=== PATIENT | female | born 1970 | race Two or more races ===

== ENCOUNTER 2025-03-11 15:14 | Inpatient (IN) | payer BC, OTHER ==
[~2025-03-11] VITALS: Ht 172.7 cm; Wt 72.7 kg
--- NOTE | 2025-03-11 16:25 | ECG ---
[facility] Test Date: 2025-03-11 Test Time: 16:24:19 Pat Name: JERRY HAMMOND Department: COUNTS INCLUDE 234 BEDS AT THE [facility] ED Patient ID: COUNTS INCLUDE [id number] BEDS AT THE [facility]-[id number] Room: 0220T Gender: F Scratcher Tender: [place] : 1970 Requested By: KEYANA HEARN Order Number: [id number] Reading MD: Todd Villanueva Measurements Intervals [place] Rate: 91 P: 80 WI: 127 QRS: 89 QRSD: 89 T: 73 QT: 386 QTc: 475 Interpretive Statements Sinus rhythm Low voltage, precordial leads RSR' in V1 or V2, right VCD or RVH Electronically Signed On 03-13-2025 15:03:05 PST by Todd Villanueva Please click the below link to view image of tracing.
--- NOTE | 2025-03-11 16:33 | DVH ---
CHEST RADIOGRAPH Indication: sob Technique: Single frontal view of the chest was obtained Comparison: None FINDINGS: Lines and Tubes: None Lungs: No focal consolidation. Pleura: No effusion. No pneumothorax. Cardiomediastinal contours: Unremarkable Bones: No acute osseous abnormality. IMPRESSION: No acute cardiopulmonary disease.
[2025-03-11 16:40] LABS: Chloride 106 mmol/L (98-107); Potassium 3.9 mmol/L (3.5-5.1); Sodium 145 mmol/L (136-145)
--- NOTE | 2025-03-11 16:40 | ED.PDOC ---
HPI Comments 55 year-old female presents to the ED with a chief complaint of intermittent substernal CP as of X2 days ago after eating. Patient described chest pain as "squeeze" like. Patient has no further complaints at this time. Patient denies symptoms of dizziness, weakness, palpitations, cough, or SOB. 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[employer] History Family History Family History: Unknown Social History Smoker: Non-Smoker Alcohol: Denies ETOH Use Drugs: Denies Drug Use Lives In: Home Constitutional: denies: chills, diaphoresis, fatigue, fever, malaise, sweats, weakness, others EENTM: denies: blurred vision, double vision, ear bleeding, ear discharge, ear drainage, ear pain, ear ringing, eye pain, eye redness, hearing loss, mouth pain, mouth swelling, nasal discharge, nose bleeding, nose congestion, nose pain, photophobia, tearing, throat pain, throat swelling, voice changes, others Respiratory: denies: cough, hemoptysis, orthopnea, SOB at rest, shortness of breath, SOB with excertion, stridor, wheezing, others Cardiovascular: reports: chest pain; denies: dizzy spells, diaphoresis, Dyspnea on exertion, edema, irregular heart beat, left arm pain, lightheadedness, palpitations, PND, syncope, others Gastrointestinal: denies: abdomen distended, abdominal pain, blood streaked bowels, constipated, diarrhea, dysphagia, difficulty swallowing, hematemesis, melena, nausea, poor appetite, poor fluid intake, rectal bleeding, rectal pain, vomiting, others Genitourinary: denies: abnormal vagina bleeding, burning, dyspareunia, dysuria, flank pain, frequency, hematuria, incontinence, pain, , vagina discharge, urgency, others Neurological: denies: dizziness, fainting, headache, left sided numbness, left sided weakness, numbness, paresthesia, pre-existing deficit, right sided numbness, right sided weakness, seizure, speech problems, tingling, tremors, weakness, others Musculoskeletal: denies: back pain, gout, joint pain, joint swelling, muscle pain, muscle stiffness, neck pain, others Integumetry: denies: bruises, change in color, change in hair/nails, dryness, laceration, lesions, lumps, rash, wounds, others Allergic/Immunocompromised: denies: Difficulty Healing, Frequent Infections, Hives, Itching, others Hematologic/Lymphatic: denies: anemia, blood clots, easy bleeding, easy bruising, swollen glands, others Endocrine: denies: excessive hunger, excessive sweating, excessive thirst, excessive urination, flushing, intolerance to cold, intolerance to heat, un explained weight gain, unexplained weight loss, others Psychiatric: denies: anxiety, bipolar disorder, depression, hopeless, panic disorder, schizophrenia, sleepless, suicidal, others All Other Systems: Reviewed and Negative Physical Exam General Appearance: Moderate Distress HEENT: Normal ENT Inspection, Pharynx Normal, TMs Normal Neck: Full Range of Motion, Non-Tender, Normal, Normal Inspection Respiratory: Chest Non-Tender, Lungs Clear, No Accessory Muscle Use, No Respiratory Distress, Normal Breath Sounds Cardiovascular: No Edema, No JVD, No Murmur, No Gallop, Normal Peripheral Pulses, Regular Rate/Rhythm Breast Exam: Deferred Gastrointestinal: No Organomegaly, Non Tender, No Pulsatile Mass, Normal Bowel Sounds, Soft Genitalia: Deferred Pelvic: Deferred Rectal: Deferred Extremities: No calf tenderness, Normal capillary refill, Normal inspection, Normal range of motion, Non-tender, No pedal edema Musculoskeletal : Apperance: Normal Neurologic: Alert, precision machinist II-XII nml as Tested, No Motor Deficits, Normal Affect, Normal Mood, No Sensory Deficits Cerebellar Function: Normal Reflexes: Normal Skin: Dry, Normal Color, Warm Peripheral Pulses: 3+ Radial (R), 3+ Radial (L) Lymphatic: No Adenopathy EKG EKG : Pulse Rate (adult): 91 [place]: Normal Cardiac Rhythm: NSR Block: None Hypertrophy: None ST: Normal Was a procedure done? Was a procedure done?: No CP Differential Dx Differential Diagnosis: A-fib, A-Flutter, Angina, Anxiety / Panic Attack, Atrial Dysrhythmia, Electrolyte Disorder Differential Diagnosis: HTN Essential Differential Diagnosis: Angina, Chest Wall Pain, Gastritis, Pneumonia X-Ray, Labs, Meds, VS Vital Signs Date Time Temp Pulse Resp B/P (MAP) Pulse Ox O2 Delivery O2 Flow Rate FiO2 03/11/25 16:40 91 03/11/25 16:24 91 03/11/25 15:19 83 03/11/25 15:14 98.2 98 16 121/107 98 98.2 Lab Test 03/11/25 16:31 03/11/25 15:28 Range/Units Troponin I High Sensitivity 3 L < 3 L </=34 ng/L White Blood Count 6.4 4.4-10.8 10^3/uL Red Blood Count 4.67 4.0-5.20 10^6/uL Hemoglobin 14.8 12.2-16.2 g/dL Hematocrit 43.6 36.0-46.0 % Mean Corpuscular Volume 93.4 80.0-100.0 fL Mean Corpuscular Hemoglobin 31.6 28.0-32.0 pg Mean Corpuscular Hemoglobin Concent 33.9 32.0-36.0 g/dL Red Cell Distribution Width 14.1 11.8-14.3 % Platelet Count 216 140-450 10^3/uL Mean Platelet Volume 8.4 6.9-10.8 fL Neutrophils (%) (Auto) 59.3 37.0-80.0 % Lymphocytes (%) (Auto) 31.5 10.0-50.0 % Monocytes (%) (Auto) 7.3 0.0-12.0 % Eosinophils (%) (Auto) 1.4 0.0-7.0 % Basophils (%) (Auto) 0.5 0.0-2.0 % Neutrophils # (Auto) 3.8 1.6-8.6 10 ^3/uL Lymphocytes # (Auto) 2.0 0.4-5.4 10 ^3/uL Monocytes # (Auto) 0.5 0-1.3 10 ^3/uL Eosinophils # (Auto) 0.1 0-0.8 10 ^3/uL Basophils # (Auto) 0 0-0.2 10 ^3/uL Nucleated Red Blood Cells 0.2 % Sodium Level 145 136-145 mmol/L Potassium Level 3.9 3.5-5.1 mmol/L Chloride Level 106 98-107 mmol/L Carbon Dioxide Level 30 20-31 mmol/L Anion Gap 9 5-15 Blood Urea Nitrogen 14 9-23 mg/dL Creatinine 0.81 0.550-1.02 mg/dL Glomerular Filtration Rate Calc 87 >90 mL/min BUN/Creatinine Ratio 17.3 10.0-20.0 Serum Glucose 91 74-106 mg/dL Calcium Level 9.7 8.7-10.4 mg/dL [place] [address] Ph: [phone] DIAGNOSTIC IMAGING Diagnostic Imaging Report : [id number] Signed PATIENT: JERRY HAMMOND ACCT: [id number] UNIT: [id number] : 1970 LOC: ER ROOM / BED: / AGE / SEX: 55 / F ADM STATUS: REG ER SERVICE 1601 ORDERING PHYSICIAN: KEYANA HEARN MD PROCEDURE(s): CXRP - CHEST PORTABLE REASON: sob ORDER NUMBER(s): [id number], ACCESSION NUMBER(s): [id number] CHEST RADIOGRAPH Indication: sob Technique: Single frontal view of the chest was obtained Comparison: None FINDINGS: Lines and Tubes: None Lungs: No focal consolidation. Pleura: No effusion. No pneumothorax. Cardiomediastinal contours: Unremarkable Bones: No acute osseous abnormality. IMPRESSION: No acute cardiopulmonary disease. ATED BY: AIMEE FRANKEL DO DICTATED DATE/TIME: 03/11/25 163 SIGNED BY: AIMEE FRANKEL DO SIGNED DATE/TIME: 03/11/25 1631 CC: Patient alert. Complaining of chest pain. Has been having these symptoms for many days. Vitals stable. She will need a stress test. Echocardiogram. Cardiology consultation. EKG reviewed does not show any acute changes. Was given aspirin. Explained to the patient. Continue monitoring. Time of 1ST Reevaluation: 16:40 Reevaluation 1ST: Unchanged Patient Education/Counseling: Diagnosis, Treatment Family Education/Counseling: No Family Present SEPSIS Sepsis Screen Date sepsis recognized/suspect: Mar 11, 2025 Time Sepsis recognized/suspect: 1514 Recent Procedure: No On Antibiotic Therapy: No Respiratory Rate >20: No Heart Rate >90: No Temp<36 C (96.8 F) or >38.3 C: No SBP <90 or MAP <65 mmHG: No New Acute Mental Status Change: No Is the patient on CPAP, BIPAP,: No Physician Orders Electrocardigram (03/11/25 16:19) Electrocardigram (03/11/25 18:19) Chest Portable (03/11/25 16:01) Vital Signs Date Time Temp Pulse Resp B/P (MAP) Pulse Ox O2 Delivery O2 Flow Rate FiO2 03/11/25 16:40 91 03/11/25 16:24 91 03/11/25 15:19 83 03/11/25 15:14 98.2 98 16 121/107 98 98.2 Laboratory Tests Test 03/11/25 15:28 White Blood Count 6.4 10^3/uL (4.4-10.8) Departure 1 Departure Time of Disposition: 17:35 Impression: Primary Impression: Chest pain of unknown etiology Disposition: ADMITTED INPATIENT Admit to: Med Surg Condition: Guarded Critical Care Note Critical Care Time?: No Stability Stability form required: No Heart Score Heart Score: Heart Score Response (Comments) Value History Slightly Suspicious 0 EKG Normal 0 Age 45-64 1 Risk Factors No known risk factors 0 Troponin Normal limit 0 Total 1 I personally scribed for KEYANA HEARN MD ([email or web address]) on 03/11/25 at 16:40. Electronically submitted by Dolores Lamar ([employer]). I personally scribed for KEYANA HEARN MD ([email or web address]) on 03/11/25 at 17:04. Electronically submitted by Dolores Lamar ([employer]). I personally scribed for KEYANA HEARN MD ([email or web address]) on 03/11/25 at 17:05. Electronically submitted by Dolores Lamar ([employer]). I personally scribed for KEYANA HEARN MD ([email or web address]) on 03/11/25 at 17:07. Electronically submitted by Dolores Lamar ([employer]). KEYANA HEARN MD Mar 11, 2025 16:40
[2025-03-11 16:41] LABS: Anion Gap 9 (5-15); Calcium 9.7 mg/dL (8.7-10.4); Carbon Dioxide 30 mmol/L (20-31); Hematocrit 43.6 % (36.0-46.0); Hemoglobin 14.8 g/dL (12.2-16.2); Mean Corpuscular Hemoglobin 31.6 pg (28.0-32.0); Mean Corpuscular Volume 93.4 fL (80.0-100.0); Nucleated Red Blood Cells % 0.2 %
[2025-03-11 16:46] LABS: BUN/Creatinine Ratio 17.3 (10.0-20.0); Blood Urea Nitrogen 14 mg/dL (9-23); Glucose 91 mg/dL (74-106)
[2025-03-11 17:13] LABS: Urine Protein, UAD Negative (Negative)
[2025-03-11] MEDS ORDERED: DOCUSATE SOD 100 MG CAP PO PRN (20:00)
[2025-03-11] MEDS ORDERED: HYDROcodone-ACET 5/325MG TAB PO PRN (20:00)
[2025-03-11] MEDS ORDERED: MORPHINE SULFATE INJ 2 MG/ml SYRG IV PRN (20:15)
[2025-03-11] MEDS ORDERED: NITROGLYCERIN 0.4 MG SL TAB SL PRN (20:15)
--- NOTE | 2025-03-11 20:23 | DVHHP2 ---
History of Present Illness Reason for Visit: Chest pain of unknown etiology History of Present Illness The patient is a 55-year-old female who denies past medical history presented to [facility] ED with complaint of chest pain. Patient reports she has been experiencing intermittent substernal chest pain for the past 3 days, described as squeezing sensation, palpitation, waking her up from sleep, getting worse today that prompted this visit. Patient was seen and evaluated in the ED, laboratory data shows WBC 6.4, platelets 216, sodium 145, potassium 3.9, BUN 14, creatinine 0.81, GFR 87, glucose 91, calcium 9.7, troponin 3, blood pressure 146/96, heart rate 72, temperature 98.2 F, O2 saturation 97% on room air. Chest x-ray show no acute cardiopulmonary disease. Please see medication orders section in the computer. On my assessment, patient denied chest pain at this moment, no headache, dizziness, palpitation, diaphoresis, shortness of breaths, no diarrhea, nausea, vomiting, fever, no chills. Patient was admitted for further evaluation and medical management. Past Medical History Denies past medical history Past Surgical History Hysterectomy Family History Reviewed, noncontributory to the management of this case. Past Social History The patient lives at home, denies smoking, alcohol or illicit drugs abuse. Review of Systems Constitutional: Yes: Weakness; No: Fever, Chills, Sweats, Malaise, Other Eyes: No: Pain, Vision change, Conjunctivae inflammation, Eyelid inflammation, Other, Redness ENT: No: Ear pain, Ear discharge, Nose pain, Nose discharge, Nose congestion, Mouth pain, Mouth swelling, Throat pain, Throat swelling, Other Respiratory: No: Cough, Dry, Shortness of breath, SOB with excertion, Wheezing, Hemoptysis, Pleuritic Pain, Sputum, Wheezing, Other Cardiovascular: No: Chest Pain, Palpitations, Orthopnea, Paroxysmal Noc. Dyspnea, Edema, Lt Headedness, Other Gastrointestinal: No: Nausea, Vomiting, Abdominal Pain, Diarrhea, Constipation, Melena, Hematochezia, Other Genitourinary: No Dysuria, No Frequency, No Incontinence, No Hematuria, No Retention, No Other Musculoskeletal: No: other, neck pain, shoulder pain, arm pain, back pain, hand pain, leg pain, foot pain Skin: No: Rash, Lesions, Jaundice, Bruising, Other Neurological: No: Weakness, Numbness, Incoordination, Change in speech, Confusion, Seizures, Other Allergies: Coded Allergies: NO KNOWN ALLERGIES (Unverified , 03/11/25) Medications Current Medications Medications Dose Ordered Sig/Rosina Route Start Time Stop Time Status Last Admin Dose Admin Sodium Chloride 10 ml Q8HR IV 03/11/25 22:00 Acetaminophen/ Hydrocodone Bitart 1 tab Q4HP PRN PO 03/11/25 20:00 Ondansetron HCl 4 mg Q4HP PRN IV 03/11/25 20:00 Docusate Sodium 100 mg BIDPRN PRN PO 03/11/25 20:00 Acetaminophen 650 mg Q6HP PRN PO 03/11/25 20:00 Exam Vital Signs Vital Signs Date Time Temp Pulse Resp B/P (MAP) Pulse Ox O2 Delivery O2 Flow Rate FiO2 03/11/25 19:32 98.2 72 18 146/96 (113) 97 98.2 General Appearance: Alert, Oriented X3, Cooperative, No acute distress HEENT: Atraumatic, PERRLA, EOMI, Mucous membr. moist/pink Respiratory: Clear to auscultation, Normal air movement Cardiovascular: Regular rate, Normal S1, Normal S2, No murmurs Abdominal: Normal bowel sounds, Soft, No tenderness, No hepatospenomegaly, No masses Extremities: No clubbing, No cyanosis, No edema, Normal pulses, No tenderness/swelling Skin: No rashes, No breakdown, No significant lesion Neuro: Normal speech, Normal tone, Sensation intact, Cranial nerves 3-12 NL, Reflexes 2+, Other (Generalized weakness) Psych/Mental Status: Mental status NL, Mood NL Labs/Xrays Labs Test 03/11/25 17:40 03/11/25 16:31 03/11/25 15:28 Range/Units Urine Color Light-yellow Yellow Urine Clarity Clear Clear Urine pH 7.0 5.0-9.0 Urine Specific [place] 1.012 1.001-1.035 Urine Protein Negative Negative Urine Ketones Negative Negative Urine Blood Negative Negative /uL Urine Nitrite Negative Negative Urine Bilirubin Negative Negative Urine Urobilinogen Normal Negative mg/dL Urine Leukocyte Esterase Negative Negative /uL Urine RBC 1 0 - 4 /hpf Urine Microscopic WBC 1 0-5 /HPF Urine Squamous Epithelial Cells Few <5 /hpf Urine Bacteria None seen None Seen /hpf Urine Glucose Normal Normal mg/dL Troponin I High Sensitivity 3 L </=34 ng/L White Blood Count 6.4 4.4-10.8 10^3/uL Red Blood Count 4.67 4.0-5.20 10^6/uL Hemoglobin 14.8 12.2-16.2 g/dL Hematocrit 43.6 36.0-46.0 % Mean Corpuscular Volume 93.4 80.0-100.0 fL Mean Corpuscular Hemoglobin 31.6 28.0-32.0 pg Mean Corpuscular Hemoglobin Concent 33.9 32.0-36.0 g/dL Red Cell Distribution Width 14.1 11.8-14.3 % Platelet Count 216 140-450 10^3/uL Mean Platelet Volume 8.4 6.9-10.8 fL Neutrophils (%) (Auto) 59.3 37.0-80.0 % Lymphocytes (%) (Auto) 31.5 10.0-50.0 % Monocytes (%) (Auto) 7.3 0.0-12.0 % Eosinophils (%) (Auto) 1.4 0.0-7.0 % Basophils (%) (Auto) 0.5 0.0-2.0 % Neutrophils # (Auto) 3.8 1.6-8.6 10 ^3/uL Lymphocytes # (Auto) 2.0 0.4-5.4 10 ^3/uL Monocytes # (Auto) 0.5 0-1.3 10 ^3/uL Eosinophils # (Auto) 0.1 0-0.8 10 ^3/uL Basophils # (Auto) 0 0-0.2 10 ^3/uL Nucleated Red Blood Cells 0.2 % Sodium Level 145 136-145 mmol/L Potassium Level 3.9 3.5-5.1 mmol/L Chloride Level 106 98-107 mmol/L Carbon Dioxide Level 30 20-31 mmol/L Anion Gap 9 5-15 Blood Urea Nitrogen 14 9-23 mg/dL Creatinine 0.81 0.550-1.02 mg/dL Glomerular Filtration Rate Calc 87 >90 mL/min BUN/Creatinine Ratio 17.3 10.0-20.0 Serum Glucose 91 74-106 mg/dL Calcium Level 9.7 8.7-10.4 mg/dL PATIENT: JERRY HAMMOND ACCT: [id number] UNIT: [id number] : 1970 LOC: ER ROOM / BED: / AGE / SEX: 55 / F ADM STATUS: REG ER SERVICE 1601 ORDERING PHYSICIAN: KEYANA HEARN MD PROCEDURE(s): CXRP - CHEST PORTABLE REASON: sob ORDER NUMBER(s): [id number], ACCESSION NUMBER(s): [id number] CHEST RADIOGRAPH Indication: sob Technique: Single frontal view of the chest was obtained Comparison: None FINDINGS: Lines and Tubes: None Lungs: No focal consolidation. Pleura: No effusion. No pneumothorax. Cardiomediastinal contours: Unremarkable Bones: No acute osseous abnormality. IMPRESSION: No acute cardiopulmonary disease. SEPSIS Sepsis Screen Date sepsis recognized/suspect: Mar 11, 2025 Time Sepsis recognized/suspect: 1513 Recent Procedure: No On Antibiotic Therapy: No Respiratory Rate >20: No Heart Rate >90: No Temp<36 C (96.8 F) or >38.3 C: No SBP <90 or MAP <65 mmHG: No New Acute Mental Status Change: No Is the patient on CPAP, BIPAP,: No Physician Orders Electrocardigram (03/11/25 16:19) Electrocardigram (03/11/25 18:19) Chest Portable (03/11/25 16:01) Allergies (03/11/25 19:48) Code Status (03/11/25 19:48) Sodium Chloride Lock (Saline Lock Ns) (03/11/25 22:00) Oxygen Per Hour (03/11/25 19:48) Hydrocodone-Acet 5/325mg Tab ([place] 5/32 (03/11/25 20:00) Ondansetron Hcl (Zofran) (03/11/25 20:00) Docusate Sodium Capsule (Colace Capsule) (03/11/25 20:00) Complete Blood Count (03/12/25 04:00) Comprehensive Metabolic Panel (03/12/25 04:00) Cardiac Diet-2gna,Lofat,Lochol (03/12/25 Breakfast) Condition: Fair (03/11/25 19:48) Acetaminophen Tablet (Tylenol Tablet) (03/11/25 20:00) Bedrest With Bathroom Privileg (03/11/25 19:48) Sequential Compression Device (03/11/25 ) Vital Signs Date Time Temp Pulse Resp B/P (MAP) Pulse Ox O2 Delivery O2 Flow Rate FiO2 03/11/25 19:32 98.2 72 18 146/96 (113) 97 98.2 03/11/25 16:40 91 03/11/25 16:24 91 03/11/25 15:19 83 03/11/25 15:14 98.2 98 16 121/107 98 98.2 Laboratory Tests Test 03/11/25 15:28 White Blood Count 6.4 10^3/uL (4.4-10.8) Assessment/Plan Assessment/Plan Chest pain of unknown etiology Generalized weakness Plan 1. Admit to telemetry unit 2. Breathing treatment 3. Pain control management 4. Management of fluids and electrolytes 5. Consultation for Cardiology 6. Diagnostic tests chest x-ray 7. DVT prophylaxis-on SCDs 8. Repeat labs CBC, CMP in a.m. 9. Continue with current medical management 10. Treatment plan discussed with patient and RN. Patient verbalized understanding. Plan discussed with: Patient, Other (RN) My Orders Orders - CHYNA TRINIDAD DNP Procedure Category Date Status Time Allergies SILVIA 03/11/25 In Process 19:48 Code Status CODE 03/11/25 Transmitted 19:48 Sodium Chloride Lock PHA 03/11/25 In Process (Saline Lock Ns) 22:00 Oxygen Per Hour RT 03/11/25 Transmitted 19:48 Hydrocodone-Acet PHA 03/11/25 In Process 5/325mg Tab ([place] 20:00 Ondansetron Hcl PHA 03/11/25 In Process (Zofran) 20:00 Docusate Sodium PHA 03/11/25 In Process Capsule (Colace 20:00 Complete Blood Count LAB 03/12/25 Verified 04:00 Comprehensive LAB 03/12/25 Verified Metabolic Panel 04:00 Cardiac DIET 03/12/25 Transmitted Diet-2gna,Lofat,Lochol Breakfast Condition: Fair SILVIA 03/11/25 In Process 19:48 Acetaminophen Tablet PHA 03/11/25 In Process (Tylenol Tablet) 20:00 Bedrest With Bathroom SILVIA 03/11/25 In Process Privileg 19:48 Sequential SILVIA 03/11/25 In Process Compression Device Problem List: (1) Chest pain of unknown etiology (2) Generalized weakness Date of Service: Mar 11, 2025 Billing Provider: CHYNA TRINIDAD DNP Common Visit Codes: 48082-[id number] INP/OBS CARE (HIGH) CHYNA TRINIDAD DNP Mar 11, 2025 20:23
[2025-03-11 20:40] VITALS: RESP 16; O2SAT 95
[2025-03-11] MEDS: SODIUM CHLOR 0.9% PF (SALINE LOCK) 10ML VIAL/SYR IV SCH (22:00)
[2025-03-11 23:38] VITALS: BP 146/89; PULSE 68; RESP 18; TEMP 98.6; O2SAT 98
[2025-03-12] VITALS (19 sets, daily range): BP systolic 111–146; BP diastolic 67–90; PULSE 52–90; RESP 12–20; TEMP 97.6–98.6; O2SAT 90–98
[2025-03-12] MEDS ORDERED: ROSU10TA16 PO (01:34)
[2025-03-12] MEDS ORDERED: ESTR2TAB5 PO (01:34)
[2025-03-12] MEDS ORDERED: CHOL500021 OR (01:34)
[2025-03-12 06:35] LABS: Hematocrit 40.9 % (36.0-46.0); Hemoglobin 13.9 g/dL (12.2-16.2); Mean Corpuscular Hemoglobin 31.5 pg (28.0-32.0); Mean Corpuscular Volume 92.7 fL (80.0-100.0); Nucleated Red Blood Cells % 0.2 %
[2025-03-12 06:55] LABS: Alanine Aminotransferase 32 U/L (7-40); Albumin 4.1 g/dL (3.2-4.8); Alkaline Phosphatase 62 U/L (46-116); Anion Gap 8 (5-15); BUN/Creatinine Ratio 16.9 (10.0-20.0); Blood Urea Nitrogen 13 mg/dL (9-23); Calcium 9.3 mg/dL (8.7-10.4); Carbon Dioxide 29 mmol/L (20-31); Glucose 78 mg/dL (74-106); Potassium 4.1 mmol/L (3.5-5.1); Sodium 145 mmol/L (136-145); Total Protein 6.5 g/dL (5.7-8.2)
[2025-03-12 06:56] LABS: Bilirubin, Total 0.5 mg/dL (0.2-1.0)
[2025-03-12 07:09] LABS: Chloride 108 mmol/L (98-107)
--- NOTE | 2025-03-12 09:44 | DVHINCON2 ---
AMARIS RUSSELL [facility] 03/12/25 0943: Date Seen: Mar 12, 2025 Referring Physician ANGELINA Nava Reason for Consultation Chest pain History of Present Illness This is a 55-year-old female who presented to the emergency room with a chief complaint of chest pain since Wednesday night. Describes her chest pain as substernal, nonradiating, non provoked, squeezing in nature, intermittent, with onset of symptoms mostly during her sleep and a one time event on Wednesday while having lunch for which she attended a local urgent care clinic and was referred to the emergency room for further evaluation. Denies previous events of chest pain. Denies any other associated symptoms such as SOB, palpitations, dizziness, or syncopal events. Significant medical history includes dyslipidemia, current hormone replacement therapy with estradiol, history of TBI and treated at [facility] in 2004 history of ovarian cyst/anemia status post partial hysterectomy, current left ovarian cyst peach size, non-growing state of the penial gland at 8 mm, and vitamin-D deficiency. Past Medical History Past medical history reviewed. No other significant than mentioned above. Past Surgical History Hernia repair at 8 years old Breast implants Partial hysterectomy Family History Family history reviewed. Maternal grandmother with nonspecific Cardiovascular disease history. Social History Denies the use of illicit drugs or tobacco use. Admits to occasional alcohol use. Allergies: Coded Allergies: NO KNOWN ALLERGIES (Unverified , 03/11/25) Home Meds Reported Medications Cholecalciferol (VITAMIN D) 5,000 Unit Tab, 5000 UNIT OR 1X/week, TAB 03/12/25 Rosuvastatin Calcium (Crestor) 10 Mg Tab, 1 TAB PO DAILY, #30 TAB 5 Refills 03/12/25 Estradiol (Estradiol) 2 Mg Tab, 1 MG PO DAILY, TAB 03/12/25 Home Meds Home medications reviewed. Current Medications Current Medications Medications (Trade) Dose Ordered Sig/Rosina Route PRN Reason Start Time Stop Time Status Last Admin Sodium Chloride (Saline Lock Ns) 10 ml Q8HR IV 03/11/25 22:00 03/12/25 05:00 Acetaminophen/ Hydrocodone Bitart ([place] 5/325MG Tab) 1 tab Q4HP PRN PO MODERATE PAIN (4-6 PAIN SCALE) 03/11/25 20:00 Ondansetron HCl (Zofran) 4 mg Q4HP PRN IV NAUSEA / VOMITING 03/11/25 20:00 Docusate Sodium (Colace Capsule) 100 mg BIDPRN PRN PO FOR CONSTIPATION 03/11/25 20:00 Acetaminophen (Tylenol Tablet) 650 mg Q6HP PRN PO PAIN SCALE 1-3 OR TEMP>100.4 03/11/25 20:00 Nitroglycerin (Ntrostat Sublingual) 0.4 mg Q5MINP PRN SL FOR CHEST PAIN 03/11/25 20:15 Morphine Sulfate 2 mg Q30M PRN IV FOR CHEST PAIN 03/11/25 20:15 Review of Systems Constitutional: No symptom reported Ears, Nose, & Throat: No symptom reported Eyes: No symptom reported Neurological: No symptoms reported Pulmonary/Respiratory: No symptom reported Cardiovascular: Chest pain Gastrointestinal: No symptom reported Genitourinary: No symptom reported Musculoskeletal: No symptom reported Skin: No symptom reported Psychiatric: No symptom reported Endocrine: No symptom reported Hemotologic/Lymphatic: No symptom reported Vital Signs Vital Signs Date Time Temp Pulse Resp B/P (MAP) Pulse Ox O2 Delivery O2 Flow Rate FiO2 03/12/25 09:00 97.9 76 16 130/90 (103) 96 97.9 03/12/25 08:00 Room Air* 0 21 Physical Exam General Appearance: Cooperative. Well developed. Well nourished. In no acute distress Head Exam: Normal inspection Neck Exam: Normal inspection. Non-tender. Normal alignment Pulmonary/Respiratory: Chest non-tender. Clear bilateral breath sounds Cardiovascular/Chest: Regular rate and rhythm. S1, S2. NSR. No murmurs. No JVD. Peripheral Pulses: 2+ Radial (R). 2+ Radial (L). 2+ Pedal (R). 2+ Pedal (L) Abdominal Exam: Normal bowel sounds Ankle Exam: Negative ankle edema Lower extremities: Negative lower extremity edema Neuro/Mental Status: A&O x4. Coherent Thoughts/Psych: Normal thought pattern. Appropriate mood and affect. Good judgement and insight Appearance: In no acute distress Skin Exam: Normal inspection. Normal color. Warm. Dry Labs/Diagnostic Data Labs Test 03/12/25 06:05 03/11/25 17:40 03/11/25 16:31 Range/Units White Blood Count 6.0 4.4-10.8 10^3/uL Red Blood Count 4.41 4.0-5.20 10^6/uL Hemoglobin 13.9 12.2-16.2 g/dL Hematocrit 40.9 36.0-46.0 % Mean Corpuscular Volume 92.7 80.0-100.0 fL Mean Corpuscular Hemoglobin 31.5 28.0-32.0 pg Mean Corpuscular Hemoglobin Concent 34.0 32.0-36.0 g/dL Red Cell Distribution Width 14.1 11.8-14.3 % Platelet Count 201 140-450 10^3/uL Mean Platelet Volume 8.3 6.9-10.8 fL Neutrophils (%) (Auto) 53.4 37.0-80.0 % Lymphocytes (%) (Auto) 33.1 10.0-50.0 % Monocytes (%) (Auto) 11.4 0.0-12.0 % Eosinophils (%) (Auto) 1.6 0.0-7.0 % Basophils (%) (Auto) 0.5 0.0-2.0 % Neutrophils # (Auto) 3.2 1.6-8.6 10 ^3/uL Lymphocytes # (Auto) 2.0 0.4-5.4 10 ^3/uL Monocytes # (Auto) 0.7 0-1.3 10 ^3/uL Eosinophils # (Auto) 0.1 0-0.8 10 ^3/uL Basophils # (Auto) 0 0-0.2 10 ^3/uL Nucleated Red Blood Cells 0.2 % Sodium Level 145 136-145 mmol/L Potassium Level 4.1 3.5-5.1 mmol/L Chloride Level 108 H 98-107 mmol/L Carbon Dioxide Level 29 20-31 mmol/L Anion Gap 8 5-15 Blood Urea Nitrogen 13 9-23 mg/dL Creatinine 0.77 0.550-1.02 mg/dL Glomerular Filtration Rate Calc 92 >90 mL/min BUN/Creatinine Ratio 16.9 10.0-20.0 Serum Glucose 78 74-106 mg/dL Calcium Level 9.3 8.7-10.4 mg/dL Total Bilirubin 0.5 0.2-1.0 mg/dL Aspartate Amino Transferase (AST) 34 13-40 U/L Alanine Aminotransferase (ALT) 32 7-40 U/L Alkaline Phosphatase 62 46-116 U/L Total Protein 6.5 5.7-8.2 g/dL Albumin 4.1 3.2-4.8 g/dL Urine Color Light-yellow Yellow Urine Clarity Clear Clear Urine pH 7.0 5.0-9.0 Urine Specific [place] 1.012 1.001-1.035 Urine Protein Negative Negative Urine Ketones Negative Negative Urine Blood Negative Negative /uL Urine Nitrite Negative Negative Urine Bilirubin Negative Negative Urine Urobilinogen Normal Negative mg/dL Urine Leukocyte Esterase Negative Negative /uL Urine RBC 1 0 - 4 /hpf Urine Microscopic WBC 1 0-5 /HPF Urine Squamous Epithelial Cells Few <5 /hpf Urine Bacteria None seen None Seen /hpf Urine Glucose Normal Normal mg/dL Troponin I High Sensitivity 3 L </=34 ng/L Assessment Chest pain rule out coronary artery disease Rule out structural heart disease Hypertension, newly diagnosed Dyslipidemia HX of TBI Current HRT * Transthoracic echocardiogram, pending * Twelve lead electrocardiogram x2, NSR without specific ST-T wave segment changes * Serial troponin levels are negative Plan/Recommendation (Dr. Shabazz) Case discussed with Dr. Shabazz. The patient has been scheduled for a transthoracic echocardiogram to evaluate cardiac function and a coronary CT angiography to rule out coronary artery disease. In the meantime, initiate blood pressure control and reestablish statin therapy. Monitor ECG changes closely and notify accordingly. Continue chest pain protocol. Further orders per clinical course. Thank you for allowing us to participate in this patient's care. Please call if you have any questions or concerns. This medical document was created using an electronic medical record system with voice recognition software and computerized dictation system. Although this document has been carefully reviewed, there might still be some phonetic and typographical errors. Occasional wrong-word or ``sound-alike substitutions may have occurred due to the inherent limitations of voice recognition software. These areas are purely typographical due to imperfections of the software programs and do not reflect any compromise in the patient's medical care. Please read the chart carefully and recognize, using context, where these substitutions have occurred. Plan discussed with: Patient, Other NYHA Physical activity limitations: NA Date of Service: Mar 12, 2025 Billing Provider: AMARIS RUSSELL PHILOSOPHY PROFESSOR Cardiology Common Codes: [id number] INP/OBS CARE (High) CORBY SHABAZZ MD 03/12/25 1650: Allergies: Coded Allergies: NO KNOWN ALLERGIES (Unverified , 03/11/25) Home Meds Reported Medications Cholecalciferol (VITAMIN D) 5,000 Unit Tab, 5000 UNIT OR 1X/week, TAB 03/12/25 Rosuvastatin Calcium (Crestor) 10 Mg Tab, 1 TAB PO DAILY, #30 TAB 5 Refills 03/12/25 Estradiol (Estradiol) 2 Mg Tab, 1 MG PO DAILY, TAB 03/12/25 Plan/Recommendation agree with LEATHER TANNER assessment and plan acs ruled out ccta is pending, if negative, cv cleared for dc home pt seen with cv team Plan discussed with: Patient RUSSELLAMARIS KWAN PHILOSOPHY PROFESSOR Mar 12, 2025 09:43 CORBY SHABAZZ MD Mar 12, 2025 16:50
[2025-03-12] MEDS ORDERED: CHLORTHALIDONE 25 MG TAB PO ONE (10:15)
[2025-03-12] MEDS: METOPROLOL TARTRATE 50 MG TAB PO ONE (11:06)
[2025-03-12] MEDS: IOHEXOL 350 MG/ML 100ML IJ ONE (11:07)
[2025-03-12 11:26] LABS: Triglycerides 36 mg/dL (< 150)
[2025-03-12 11:28] LABS: Cholesterol 109 mg/dL (< 200); HDL Cholesterol 52 mg/dL (40-59)
[2025-03-12] MEDS: NITROGLYCERIN 0.4 MG SL TAB SL ONE (12:39)
--- NOTE | 2025-03-12 13:51 | DVHPN2 ---
Reviewed: H&P Changes from previous H/P or p: No Changes General: Per HPI Eyes: No Pain, No Vision change, No Conjunctivae inflammation, No Eyelid inflammation, No Other, No Redness ENT: No Ear pain, No Ear discharge, No Nose pain, No Nose discharge, No Nose congestion, No Mouth pain, No Mouth swelling, No Throat pain, No Throat swelling, No Other Cardiovascular: No Chest Pain, No Palpitations, No Orthopnea, No Paroxysmal Noc. Dyspnea, No Edema, No Lt Headedness, No Other Respiratory: No Cough, No Dry, No Shortness of breath, No SOB with excertion, No Wheezing, No Hemoptysis, No Pleuritic Pain, No Sputum, No Other Gastrointestinal: No Nausea, No Vomiting, No Abdominal Pain, No Diarrhea, No Constipation, No Melena, No Hematochezia, No Other Genitourinary: No Dysuria, No Frequency, No Incontinence, No Hematuria, No Retention, No Other Musculoskeletal: No other, No neck pain, No shoulder pain, No arm pain, No back pain, No hand pain, No leg pain, No foot pain Skin: No Rash, No Lesions, No Jaundice, No Bruising, No Other Objective Vitals Vital Signs Date Time Temp Pulse Resp B/P (MAP) Pulse Ox O2 Delivery O2 Flow Rate FiO2 03/12/25 12:44 66 14 138/78 (98) 92 03/12/25 09:00 97.9 97.9 03/12/25 08:00 Room Air* 0 21 Intake/Output Intake and Output 03/12/25 07:00 Intake Total 250 ml Output Total 0 ml Balance 250 ml Intake Oral 250 ml Output Urine Total 0 ml Exam General Appearance: Alert, Oriented X3, Cooperative, No acute distress HEENT: Atraumatic, PERRLA, EOMI, Mucous membr. moist/pink Respiratory: Clear to auscultation, Normal air movement Cardiovascular: Regular rate, Normal S1, Normal S2, No murmurs Abdominal: Normal bowel sounds, Soft, No tenderness, No hepatospenomegaly, No masses Extremities: No clubbing, No cyanosis, No edema, Normal pulses, No tenderness/swelling Skin: No rashes, No breakdown, No significant lesion Neuro: Normal speech, Normal tone, Sensation intact, Cranial nerves 3-12 NL, Reflexes 2+, Other (Generalized weakness) Psych/Mental Status: Mental status NL, Mood NL Medications Current Medications Medications Dose Ordered Sig/Rosina Route Start Time Stop Time Status Last Admin Dose Admin Sodium Chloride 10 ml Q8HR IV 03/11/25 22:00 03/12/25 05:00 10 ML Acetaminophen/ Hydrocodone Bitart 1 tab Q4HP PRN PO 03/11/25 20:00 Ondansetron HCl 4 mg Q4HP PRN IV 03/11/25 20:00 Docusate Sodium 100 mg BIDPRN PRN PO 03/11/25 20:00 Acetaminophen 650 mg Q6HP PRN PO 03/11/25 20:00 Nitroglycerin 0.4 mg Q5MINP PRN SL 03/11/25 20:15 Morphine Sulfate 2 mg Q30M PRN IV 03/11/25 20:15 Chlorthalidone 12.5 mg DAILY@BREAKFAST PO 03/13/25 08:00 Atorvastatin Calcium 20 mg HS PO 03/12/25 22:00 Laboratory Results Laboratory Tests 03/12/25 06:05 Chemistry Test 03/11/25 15:28 03/12/25 06:05 Calcium Level 9.7 mg/dL (8.7-10.4) 9.3 mg/dL (8.7-10.4) Albumin 4.1 g/dL (3.2-4.8) Total Protein 6.5 g/dL (5.7-8.2) Lipid panel Test 03/12/25 06:05 Cholesterol Level 109 mg/dL (< 200) HDL Cholesterol 52 mg/dL (40-59) Triglycerides Level 36 mg/dL (< 150) LFT Test 03/12/25 06:05 Alanine Aminotransferase (ALT) 32 U/L (7-40) Alkaline Phosphatase 62 U/L (46-116) Aspartate Amino Transferase (AST) 34 U/L (13-40) Total Bilirubin 0.5 mg/dL (0.2-1.0) HgA1c, TSH Test 03/12/25 06:05 Hemoglobin A1c 5.1 % A1C (<5.7) Thyroid Stimulating Hormone (TSH) 1.39 uIU/mL (0.55-4.78) Urinalysis Test 03/11/25 17:40 Urine Color Light-yellow (Yellow) Urine Clarity Clear (Clear) Urine pH 7.0 (5.0-9.0) Urine Specific [place] 1.012 (1.001-1.035) Urine Protein Negative (Negative) Urine Ketones Negative (Negative) Urine Blood Negative /uL (Negative) Urine Nitrite Negative (Negative) Urine Bilirubin Negative (Negative) Urine Urobilinogen Normal mg/dL (Negative) Urine Leukocyte Esterase Negative /uL (Negative) Urine RBC 1 /hpf (0 - 4) Urine Microscopic WBC 1 /HPF (0-5) Urine Squamous Epithelial Cells Few /hpf (<5) Urine Bacteria None seen /hpf (None Seen) Urine Glucose Normal mg/dL (Normal) Labs and/or images reviewed: Labs reviewed by me, Image(s) reviewed by me Assessment/Plan Assessment/Plan 55-year-old female who denies past medical history presented to [facility] ED with complaint of chest pain. chest pain since Wednesday night. Describes her chest pain as substernal, nonradiating, non provoked, squeezing in nature, intermittent, with onset of symptoms mostly during her sleep and a one time event on Wednesday while having lunch for which she attended a local urgent care clinic and was referred to the emergency room for further evaluation. Patient reports she has been experiencing intermittent substernal chest pain for the past 3 days, described as squeezing sensation, palpitation, waking her up from sleep, getting worse today that prompted this visit. -PMHx: dyslipidemia, current hormone replacement therapy with estradiol, history of TBI and treated at [facility] in 2004 history of ovarian cyst/anemia status post partial hysterectomy, current left ovarian cyst peach size, non-growing state of the penial gland at 8 mm, and vitamin-D deficiency. 03/12 - patient taken to [facility] today with cardiology. Trop neg, , no concerning PMHx. echo pending. diagnosis: CP, unstable angina possible, ACS HLD hormone therapyfor ovarian cyst post partial hysterectomy plan: ACS protocol cardiology consulted protonix iv daily full dose heparin gtt tele full code Plan discussed with: Patient Date of Service: Mar 12, 2025 Billing Provider: TOYIN HAMMOND MD Common Visit Codes: [id number] INP/OBS CARE(HIGH) TOYIN HAMMOND MD Mar 12, 2025 13:51
--- NOTE | 2025-03-12 17:14 | DVHSR ---
APPROVED REPORT EXAM: Two-dimensional and M-mode echocardiogram with Doppler and color Doppler. Blood Pressure: 136/81 mmHg INDICATION Chest Pain RISK FACTORS Height: 5'8", Weight: 160 DIMENSIONS LVDd 4.1 (3.8-5.7cm) LA (2D) 3.6 (1.9-4.0cm) Aortic Root 3.7 (2.0-3.7cm) LVDs 2.9 (2.5-4.0cm) LA (MM) (1.9-4.0cm) Aortic Cusp Exc 1.7 (1.5-2.0cm) EF (%) 60.0 (55-70%) Rt. Atrium 3.2 (1.9-4.0cm) Asc. Aorta cm IVSd 0.8 (0.7-1.1cm) RV (D) 3.1 (1.8-2.4cm) PWd 1.0 (0.7-1.1cm) Mitral Valve Mitral Mitral Stenosis E wave 0.64m/s MV Mean GR. mmHg A wave 0.62m/s MV Peak GR. mmHg E/A ratio 1.0 2D MVA cm2 DECEL Time 244ms PRESS 1/2 Time ms Aortic Valve Aortic Valve Aortic Stenosis V1 0.81m/s AO Mean GR. 3mmHg V2 1.12m/s AO Peak GR. 5mmHg LVOT Diameter 2.0 (1.8-2.4cm) Doppler ERWIN 2.27cm2 Pulmonic Valve V2 0.67m/s Tricuspid Valve TR Velocity 2.29m/s RVSP 24mmHg Conclusion lvef 65% normal rv function normal atria no severe valve abnormalities noted
[2025-03-12] MEDS: ONDANSETRON HCL 4 MG/2 ML VIAL IV PRN (17:51)
[2025-03-12] MEDS: ACETAMINOPHEN 325 MG TAB PO PRN (17:52)
[2025-03-12] MEDS: ATORVASTATIN 20 MG TAB PO SCH (22:03)
[2025-03-13 01:00] VITALS: BP 120/73; PULSE 60; RESP 19; TEMP 97.3; O2SAT 96
[2025-03-13 05:00] VITALS: BP 107/55; PULSE 70; RESP 19; TEMP 98.1; O2SAT 95
[2025-03-13 06:33] LABS: Hematocrit 42.6 % (36.0-46.0); Hemoglobin 14.4 g/dL (12.2-16.2); Mean Corpuscular Hemoglobin 31.4 pg (28.0-32.0); Mean Corpuscular Volume 92.8 fL (80.0-100.0); Nucleated Red Blood Cells % 0.0 %
[2025-03-13 07:11] LABS: Alanine Aminotransferase 28 U/L (7-40); Alkaline Phosphatase 63 U/L (46-116); Anion Gap 11 (5-15); BUN/Creatinine Ratio 13.9 (10.0-20.0); Blood Urea Nitrogen 11 mg/dL (9-23); Calcium 9.4 mg/dL (8.7-10.4); Carbon Dioxide 29 mmol/L (20-31); Chloride 103 mmol/L (98-107); Glucose 92 mg/dL (74-106); Potassium 4.0 mmol/L (3.5-5.1); Sodium 143 mmol/L (136-145); Total Protein 6.9 g/dL (5.7-8.2)
[2025-03-13 07:13] LABS: Albumin 4.3 g/dL (3.2-4.8); Bilirubin, Total 0.5 mg/dL (0.2-1.0)
--- NOTE | 2025-03-13 07:40 | ECG ---
[facility] Test Date: 2025-03-11 Test Time: 15:19:06 Pat Name: JERRY HAMMOND Department: [facility] ED Patient ID: [id number] Room: 0220T B Gender: F [employer] Front [employer] Developer: alfred : 1970 Requested By: KEYANA HEARN Order Number: [id number] Reading MD: Todd Villanueva Measurements Intervals [place] Rate: 83 P: 81 [place]: 131 QRS: 92 QRSD: 103 T: 69 QT: 402 QTc: 473 Interpretive Statements Sinus rhythm Borderline right axis deviation Electronically Signed On 03-13-2025 15:02:54 PST by Todd Villanueva Please click the below link to view image of tracing.
[2025-03-13 08:00] VITALS: PULSE 65
[2025-03-13] MEDS: CHLORTHALIDONE 25 MG TAB PO SCH (08:00)
[2025-03-13 09:00] VITALS: BP 104/75; PULSE 62; RESP 17; TEMP 97.7; O2SAT 99
--- NOTE | 2025-03-13 10:38 | DVHPN2 ---
Reviewed: H&P Changes from previous H/P or p: No Changes General: Per HPI Eyes: No Pain, No Vision change, No Conjunctivae inflammation, No Eyelid inflammation, No Other, No Redness ENT: No Ear pain, No Ear discharge, No Nose pain, No Nose discharge, No Nose congestion, No Mouth pain, No Mouth swelling, No Throat pain, No Throat swelling, No Other Cardiovascular: No Chest Pain, No Palpitations, No Orthopnea, No Paroxysmal Noc. Dyspnea, No Edema, No Lt Headedness, No Other Respiratory: No Cough, No Dry, No Shortness of breath, No SOB with excertion, No Wheezing, No Hemoptysis, No Pleuritic Pain, No Sputum, No Other Gastrointestinal: No Nausea, No Vomiting, No Abdominal Pain, No Diarrhea, No Constipation, No Melena, No Hematochezia, No Other Genitourinary: No Dysuria, No Frequency, No Incontinence, No Hematuria, No Retention, No Other Musculoskeletal: No other, No neck pain, No shoulder pain, No arm pain, No back pain, No hand pain, No leg pain, No foot pain Skin: No Rash, No Lesions, No Jaundice, No Bruising, No Other Objective Vitals Vital Signs Date Time Temp Pulse Resp B/P (MAP) Pulse Ox O2 Delivery O2 Flow Rate FiO2 03/13/25 07:55 Room Air* 0 21 03/13/25 05:00 98.1 70 19 107/55 (72) 95 98.1 Intake/Output Intake and Output 03/13/25 07:00 Intake Total 618 ml Balance 618 ml Intake Oral 618 ml # Voids 5 Exam General Appearance: Alert, Oriented X3, Cooperative, No acute distress HEENT: Atraumatic, PERRLA, EOMI, Mucous membr. moist/pink Respiratory: Clear to auscultation, Normal air movement Cardiovascular: Regular rate, Normal S1, Normal S2, No murmurs Abdominal: Normal bowel sounds, Soft, No tenderness, No hepatospenomegaly, No masses Extremities: No clubbing, No cyanosis, No edema, Normal pulses, No tenderness/swelling Skin: No rashes, No breakdown, No significant lesion Neuro: Normal speech, Normal tone, Sensation intact, Cranial nerves 3-12 NL, Reflexes 2+, Other (Generalized weakness) Psych/Mental Status: Mental status NL, Mood NL Medications Current Medications Medications Dose Ordered Sig/Rosina Route Start Time Stop Time Status Last Admin Dose Admin Sodium Chloride 10 ml Q8HR IV 03/11/25 22:00 03/13/25 05:35 10 ML Acetaminophen/ Hydrocodone Bitart 1 tab Q4HP PRN PO 03/11/25 20:00 Ondansetron HCl 4 mg Q4HP PRN IV 03/11/25 20:00 03/13/25 08:20 4 MG Docusate Sodium 100 mg BIDPRN PRN PO 03/11/25 20:00 Acetaminophen 650 mg Q6HP PRN PO 03/11/25 20:00 03/13/25 08:20 650 MG Nitroglycerin 0.4 mg Q5MINP PRN SL 03/11/25 20:15 Morphine Sulfate 2 mg Q30M PRN IV 03/11/25 20:15 Chlorthalidone 12.5 mg DAILY@BREAKFAST PO 03/13/25 08:00 Atorvastatin Calcium 20 mg HS PO 03/12/25 22:00 03/12/25 22:03 20 MG Laboratory Results Laboratory Tests 03/13/25 05:55 Chemistry Test 03/13/25 05:55 Albumin 4.3 g/dL (3.2-4.8) Calcium Level 9.4 mg/dL (8.7-10.4) Total Protein 6.9 g/dL (5.7-8.2) LFT Test 03/13/25 05:55 Alanine Aminotransferase (ALT) 28 U/L (7-40) Alkaline Phosphatase 63 U/L (46-116) Aspartate Amino Transferase (AST) 29 U/L (13-40) Total Bilirubin 0.5 mg/dL (0.2-1.0) Urinalysis Test 03/11/25 17:40 Urine Color Light-yellow (Yellow) Urine Clarity Clear (Clear) Urine pH 7.0 (5.0-9.0) Urine Specific [place] 1.012 (1.001-1.035) Urine Protein Negative (Negative) Urine Ketones Negative (Negative) Urine Blood Negative /uL (Negative) Urine Nitrite Negative (Negative) Urine Bilirubin Negative (Negative) Urine Urobilinogen Normal mg/dL (Negative) Urine Leukocyte Esterase Negative /uL (Negative) Urine RBC 1 /hpf (0 - 4) Urine Microscopic WBC 1 /HPF (0-5) Urine Squamous Epithelial Cells Few /hpf (<5) Urine Bacteria None seen /hpf (None Seen) Urine Glucose Normal mg/dL (Normal) Labs and/or images reviewed: Labs reviewed by me, Image(s) reviewed by me Assessment/Plan Assessment/Plan 55-year-old female who denies past medical history presented to [facility] ED with complaint of chest pain. chest pain since Wednesday night. Describes her chest pain as substernal, nonradiating, non provoked, squeezing in nature, intermittent, with onset of symptoms mostly during her sleep and a one time event on Wednesday while having lunch for which she attended a local urgent care clinic and was referred to the emergency room for further evaluation. Patient reports she has been experiencing intermittent substernal chest pain for the past 3 days, described as squeezing sensation, palpitation, waking her up from sleep, getting worse today that prompted this visit. -PMHx: dyslipidemia, current hormone replacement therapy with estradiol, history of TBI and treated at [facility] in 2004 history of ovarian cyst/anemia status post partial hysterectomy, current left ovarian cyst peach size, non-growing state of the penial gland at 8 mm, and vitamin-D deficiency. 03/12: patient taken to CT coronary angiography today with cardiology. Trop neg, , no concerning PMHx. echo pending. 03/13: Echo was done showing EF 55% otherwise no valvular abnormalities normal atria and ventricular functions. Coronary CTA angiography was done and coronary cardiac CT scoring was done but results are not available yet. To be ready for cardiology clearance. Otherwise labs were normal, troponins were negative as per yesterday's eval. If cleared by Cardiology possible discharge today. diagnosis: Chest pain, possible longstanding GERD, esophageal spasms possible, unable to rule out unstable angina ruled out ACS ruled out HLD hormone therapy for ovarian cyst post partial hysterectomy Family history of heart disease plan: ACS protocol cardiology consulted protonix iv daily full dose heparin gtt tele full code Plan discussed with: Patient Date of Service: Mar 13, 2025 Billing Provider: TOYIN HAMMOND MD Common Visit Codes: [id number] INP/OBS CARE(HIGH) TOYIN HAMMOND MD Mar 13, 2025 10:38
[2025-03-13 13:00] VITALS: BP 132/66; PULSE 80; RESP 18; TEMP 98.6; O2SAT 98
--- NOTE | 2025-03-13 14:37 | DVH ---
Procedure: CT CT HEART/ CALCIUM SCORE Reason for study/Clinical History: Chest pain Comparison Study: None Exam Date: 03/12/2025 12:37 PM Technique: Imaging of the coronary arteries was performed without intravenous contrast administration. Coronary artery calcification analysis was performed with the SmartScore program at a threshold of 130 Hounsfield units. A combination of automated exposure control and/or iterative reconstruction technique was utilized for dose reduction. CT reconstructions with sagittal and coronal reformations were also performed. Findings: Coronary arteries: Calcium Score: LAD: 0, RCA 0, LCX 0, Other 0,. Total: 0 Cardiac: There is normal size of the heart. Normal pericardium without thickening or calcification. No pericardial effusion. Other findings: Normal caliber of visualized aorta. Respiratory motion artifact and hypoventilatory changes. No focal abnormality is seen within lung parenchyma. No osseous or soft tissue abnormality is noted. IMPRESSION: FOR A female OF 55 YEARS, A TOTAL CALCIUM SCORE OF 0 PLACES THIS PATIENT WITHIN THE 25th PERCENTILE RANGE. Background Information: Coronary calcium is a marker for atherosclerosis. Spiral CT is used to detect the presence and amount of calcium in the major coronary arteries. The location of the calcification does not correspond directly to the site of stenosis but does correlate with severity of underlying disease. A score of zero indicates no coronary artery calcification and thus very low likelihood of significant coronary artery disease. However, some patients may only have soft (non- calcified)plaque and thus may have a false negative screening study. Even with a minimal plaque score, between 5-10% of patients may still have significant coronary artery disease. Any score above zero indicates some degree of coronary artery disease. The higher the score, the more likely significant disease is present. The number of coronary arteries affected and degree of calcium for the patient's age and sex affects clinical significance of the score. The management of a patient should not be based solely on the result of this study, but should be integrated with other clinical and laboratory findings. Radiation Dose Information: CT Dose: CTDI volume is 70 mGy. Dose-length product is 1599.4 mGy*cm
--- NOTE | 2025-03-13 15:02 | DVH ---
CLINICAL HISTORY: Chest pain TECHNIQUE: CT angiogram of the heart and coronary arteries was performed with and without intravenous contrast. Initially a non-contrast prospective EKG triggered acquisition through the heart was obtained to assess coronary calcium. This was followed by retrospective EKG-gated acquisition through the heart following intravenous administration of CLINICAL HISTORY: Chest pain TECHNIQUE: CT angiogram of the heart and coronary arteries was performed with and without intravenous contrast. This exam was performed according to our departmental dose optimization program. Up-to-date CT equipment and radiation dose reduction techniques are utilized as appropriate. CTDI 70 DLP 1599 COMPARISON: ECHO 2D MODE CARDIAC DOP on DOS: 03/12/25, CT CT HEART/ CALCIUM SCORE on DOS: 03/12/25 CORONARY ARTERIES-- The coronary arteries demonstrate normal origins and courses. The coronary system is right dominant. No coronary calcium. Left Main: Widely patent. No stenosis, calcium, or atherosclerotic lesion. Left Anterior Descending: Widely patent. No stenosis, calcium, or atherosclerotic lesion. The diagonal branches and major septal perforators are patent. Circumflex Artery: Widely patent. No stenosis, calcium, or atherosclerotic lesion. The obtuse marginal branches are patent. Right Coronary Artery: Widely patent. No stenosis, calcium, or atherosclerotic lesion. The acute marginal, posterior descending, and posterolateral branches are patent. CARDIAC ASSESSMENT-- The right atrium is normal in size and morphology. The right ventricle is normal in size and morphology, and exhibits normal myocardial thickness. The left atrium is normal in size and morphology, and measures 2.6 cm in dimension. The left ventricle is normal in size and measure 4.7 cm in end-diastolic dimension. The myocardial wall thickness is within normal limits, and measures up to 8 mm. No resting wall motion abnormality on multiphase cine images. No cardiac shunt or thrombus. There is trace pericardial fluid. VASCULAR ASSESSMENT-- Aortic valve is trileaflet. The aortic root is normal in size, and measures 2.3d cm at the annulus, 3.3d cm at the sinus of Valsalva, and 3 cm at the sinotubular ridge. The pulmonary arteries are normal in size. ADDITIONAL FINDINGS-- There are bilateral partially imaged breast implants. IMPRESSION: Unremarkable CTA examination of the coronary arteries. No coronary artery calcium. Right dominant system. Trace pericardial fluid.
--- NOTE | 2025-03-13 15:07 | DVHPN2 ---
Consult Progress Note Date Seen: Mar 13, 2025 Subjective Review of Systems: CVS:Normal, RESPIRATORY:Normal, NEURO:Normal Objective vital signs Vital Sign Date Time Temp Pulse Resp B/P (MAP) Pulse Ox O2 Delivery O2 Flow Rate FiO2 03/13/25 09:00 97.7 62 17 104/75 (85) 99 97.7 03/13/25 07:55 Room Air* 0 21 Total Intake and Output 03/12/25 03/12/25 03/13/25 15:00 23:00 07:00 Intake Total 318 ml 300 ml Balance 318 ml 300 ml medications Current Medications Medications Dose Ordered Sig/Rosina Route Start Time Stop Time Status Last Admin Dose Admin Sodium Chloride 10 ml Q8HR IV 03/11/25 22:00 03/13/25 13:30 10 ML Acetaminophen/ Hydrocodone Bitart 1 tab Q4HP PRN PO 03/11/25 20:00 Ondansetron HCl 4 mg Q4HP PRN IV 03/11/25 20:00 03/13/25 08:20 4 MG Docusate Sodium 100 mg BIDPRN PRN PO 03/11/25 20:00 Acetaminophen 650 mg Q6HP PRN PO 03/11/25 20:00 03/13/25 08:20 650 MG Nitroglycerin 0.4 mg Q5MINP PRN SL 03/11/25 20:15 Morphine Sulfate 2 mg Q30M PRN IV 03/11/25 20:15 Chlorthalidone 12.5 mg DAILY@BREAKFAST PO 03/13/25 08:00 Atorvastatin Calcium 20 mg HS PO 03/12/25 22:00 03/12/25 22:03 20 MG Examination: LUNGS:Normal, CVS:Normal, NEURO:Normal laboratory and microbiology Laboratory Tests 03/13/25 05:55 Test 03/13/25 05:55 Range/Units Serum Glucose 92 74-106 mg/dL Problem List/Assessment/Plan Problem List/Assessment/Plan Chest pain, coronary artery disease ruled out Hypertension, newly diagnosed Dyslipidemia HX of TBI Current HRT * Transthoracic echocardiogram revealed a LVEF of 65% with normal RV function, normal atria, and no severe valve abnormalities * Coronary calcium score to the LAD 0, RCA 0, LCx 0, other 0 * Twelve lead electrocardiogram x2, NSR without specific ST-T wave segment changes * Serial troponin levels are negative Plan/Recommendation (Dr. Lawrence) Transthoracic echocardiogram and coronary calcium care are unremarkable. Continue blood pressure control and statin therapy. There is no further cardiac work-up indicated at this time. Kindly call with any questions or concerns. signing off at this time. Thank you for allowing us to participate in this patient's care. This medical document was created using an electronic medical record system with voice recognition software and computerized dictation system. Although this document has been carefully reviewed, there might still be some phonetic and typographical errors. Occasional wrong-word or ``sound-alike substitutions may have occurred due to the inherent limitations of voice recognition software. These areas are purely typographical due to imperfections of the software programs and do not reflect any compromise in the patient's medical care. Please read the chart carefully and recognize, using context, where these substitutions have occurred. Plan discussed with: Patient, Other Date of Service: Mar 13, 2025 Billing Provider: AMARIS RUSSELL Cardiology Common Codes: 82297-[id number] [facility](High AMARIS RUSSELL Mar 13, 2025 15:07
[2025-03-13] MEDS ORDERED: PANT40TA2 PO (15:28)
--- NOTE | 2025-03-13 15:30 | DVHDS2 ---
Discharge Summary Date of Admission Mar 11, 2025 at 20:13 Date of Discharge: Mar 13, 2025 Labs/Diagnostic Data: Laboratory Results Test 03/13/25 05:55 03/12/25 06:05 03/11/25 17:40 03/11/25 16:31 White Blood Count 6.2 10^3/uL (4.4-10.8) Red Blood Count 4.60 10^6/uL (4.0-5.20) Hemoglobin 14.4 g/dL (12.2-16.2) Hematocrit 42.6 % (36.0-46.0) Mean Corpuscular Volume 92.8 fL (80.0-100.0) Mean Corpuscular Hemoglobin 31.4 pg (28.0-32.0) Mean Corpuscular Hemoglobin Concent 33.8 g/dL (32.0-36.0) Red Cell Distribution Width 14.1 % (11.8-14.3) Platelet Count 227 10^3/uL (140-450) Mean Platelet Volume 8.5 fL (6.9-10.8) Neutrophils (%) (Auto) 76.4 % (37.0-80.0) Lymphocytes (%) (Auto) 18.2 % (10.0-50.0) Monocytes (%) (Auto) 5.0 % (0.0-12.0) Eosinophils (%) (Auto) 0.1 % (0.0-7.0) Basophils (%) (Auto) 0.3 % (0.0-2.0) Neutrophils # (Auto) 4.8 10 ^3/uL (1.6-8.6) Lymphocytes # (Auto) 1.1 10 ^3/uL (0.4-5.4) Monocytes # (Auto) 0.3 10 ^3/uL (0-1.3) Eosinophils # (Auto) 0 10 ^3/uL (0-0.8) Basophils # (Auto) 0 10 ^3/uL (0-0.2) Nucleated Red Blood Cells 0.0 % Sodium Level 143 mmol/L (136-145) Potassium Level 4.0 mmol/L (3.5-5.1) Chloride Level 103 mmol/L (98-107) Carbon Dioxide Level 29 mmol/L (20-31) Anion Gap 11 (5-15) Blood Urea Nitrogen 11 mg/dL (9-23) Creatinine 0.79 mg/dL (0.550-1.02) Glomerular Filtration Rate Calc 89 mL/min (>90) BUN/Creatinine Ratio 13.9 (10.0-20.0) Serum Glucose 92 mg/dL (74-106) Calcium Level 9.4 mg/dL (8.7-10.4) Total Bilirubin 0.5 mg/dL (0.2-1.0) Aspartate Amino Transferase (AST) 29 U/L (13-40) Alanine Aminotransferase (ALT) 28 U/L (7-40) Alkaline Phosphatase 63 U/L (46-116) Total Protein 6.9 g/dL (5.7-8.2) Albumin 4.3 g/dL (3.2-4.8) Hemoglobin A1c 5.1 % A1C (<5.7) Triglycerides Level 36 mg/dL (< 150) Cholesterol Level 109 mg/dL (< 200) LDL Cholesterol 42 mg/dL (< 100) HDL Cholesterol 52 mg/dL (40-59) Vitamin D 25-Hydroxy 83.9 ng/mL (30.0-100) Thyroid Stimulating Hormone (TSH) 1.39 uIU/mL (0.55-4.78) Urine Color Light-yellow (Yellow) Urine Clarity Clear (Clear) Urine pH 7.0 (5.0-9.0) Urine Specific [place] 1.012 (1.001-1.035) Urine Protein Negative (Negative) Urine Ketones Negative (Negative) Urine Blood Negative /uL (Negative) Urine Nitrite Negative (Negative) Urine Bilirubin Negative (Negative) Urine Urobilinogen Normal mg/dL (Negative) Urine Leukocyte Esterase Negative /uL (Negative) Urine RBC 1 /hpf (0 - 4) Urine Microscopic WBC 1 /HPF (0-5) Urine Squamous Epithelial Cells Few /hpf (<5) Urine Bacteria None seen /hpf (None Seen) Urine Glucose Normal mg/dL (Normal) Troponin I High Sensitivity 3 ng/L (</=34) Other Laboratory Tests 03/13/25 05:55 Brief Hx & Hospital Course: 55-year-old female who denies past medical history presented to [facility] ED with complaint of chest pain. chest pain since Andrew night. Describes her chest pain as substernal, nonradiating, non provoked, squeezing in nature, intermittent, with onset of symptoms mostly during her sleep and a one time event on Wednesday while having lunch for which she attended a local urgent care clinic and was referred to the emergency room for further evaluation. Patient reports she has been experiencing intermittent substernal chest pain for the past 3 days, described as squeezing sensation, palpitation, waking her up from sleep, getting worse today that prompted this visit. -PMHx: dyslipidemia, current hormone replacement therapy with estradiol, history of TBI and treated at [facility] in 2004 history of ovarian cyst/anemia status post partial hysterectomy, current left ovarian cyst peach size, non-growing state of the penial gland at 8 mm, and vitamin-D deficiency. 03/12: patient taken to CT coronary angiography today with cardiology. Trop neg, , no concerning PMHx. echo pending. 03/13: Echo was done showing EF 55% otherwise no valvular abnormalities normal atria and ventricular functions. Coronary CTA angiography was done and coronary cardiac CT scoring was done but results are not available yet. To be ready for cardiology clearance. Otherwise labs were normal, troponins were negative as per yesterday's eval. If cleared by Cardiology possible discharge today. -coronary artery score is 0, cleared by Cardiology, patient to follow up with PCP. diagnosis: Chest pain, possible longstanding GERD, esophageal spasms possible, unable to rule out unstable angina ruled out ACS ruled out Hypertension, newly diagnosed Dyslipidemia hormone therapy for ovarian cyst HX of TBI post partial hysterectomy Family history of heart disease history breast implants plan: - coronary artery score is 0, cleared by Cardiology, patient to follow up with PCP. - Protonix 40mg daily for 1 month - continue other home medications not mentioned above - follow up with PCP Condition at Discharge: Fair Final Diagnosis/Problems List Chest pain, possible longstanding GERD, esophageal spasms possible, unable to rule out unstable angina ruled out ACS ruled out Hypertension, newly diagnosed Dyslipidemia hormone therapy for ovarian cyst HX of TBI post partial hysterectomy Family history of heart disease history breast implants plan: - coronary artery score is 0, cleared by Cardiology, patient to follow up with PCP. - Protonix 40mg daily for 1 month - continue other home medications not mentioned above - follow up with PCP Discharge Disposition: Home Discharge Instruct/Medications Scheduled Cholecalciferol (Vitamin D), 5,000 UNIT OR 1X/week, (Reported) Estradiol (Estradiol), 1 MG PO DAILY, (Reported) Rosuvastatin Calcium (Crestor), 1 TAB PO DAILY, (Reported) Discharge Statement: "Patient was advised to return to the ER or call 911 if any headaches, dizziness, shortness of breath, chest pain, abdominal pain, bleeding, fevers, or worsening of medical condition. Patient was counseled about treatment plan, medications, possible side effects, patientverbalized understanding. All questions were answered to the best of my ability. This discharge took greater then 30 minutes in planning, reviewing documentation, counseling the patient, and discussing with other team members." ASSESSMENT ASSESSMENT Assessment Date of Service: Mar 13, 2025 Billing Provider: TOYIN HAMMOND MD Common Visit Codes: 85630-DON/OBS DISCH DAY >30min TOYIN HAMMOND MD Mar 13, 2025 15:30
[2025-03-13 15:56] VITALS: BP 127/71; PULSE 84; TEMP 37
== END 2025-03-13 17:18 | disposition home or self-care (01) | DRG 392 ==
LOC: ER 15:14 → OVERFLOW 20:13 → TELE-CENTR 23:26
PROVIDERS: ADMIT Student in an Organized Health Care Education/Training Program; ATTEND Student in an Organized Health Care Education/Training Program
DX: K21.9 Gastro-esophageal reflux disease without esophagitis (principal); E78.5 Hyperlipidemia, unspecified; I10 Essential (primary) hypertension; K22.4 Dyskinesia of esophagus; Z90.711 Acquired absence of uterus with remaining cervical stump; Z82.49 Family history of ischemic heart disease and other diseases of the circulatory system; Z87.820 Personal history of traumatic brain injury; Z98.82 Breast implant status; Z79.899 Other long term (current) drug therapy
CPT/HCPCS: 36415; 71045; 75571; 75574; 80048; 80053; 80061; 81001; 82306; 83036; 84443; 84484; 85025; 93005; 93306; G0378; J2405